=== PATIENT | male | born 1985 ===

== ENCOUNTER 2017-08-05 06:58 | Inpatient (IN) | payer OTHER ==
[~2017-08-05] VITALS: Ht 188 cm; Wt 102.1 kg
[2017-08-05] MEDS ORDERED: PRILOSEC OTC20 MG (07:47)
[2017-08-09] MEDS ORDERED: FLAGYL500MG PO (15:54)
[2017-08-09] MEDS ORDERED: CIPRO500 MG PO (15:54)
== END 2017-08-09 17:17 | disposition home or self-care (01) | DRG 392 ==
LOC: ER 06:58 → SEC-K 21:30 → MEDI 21:30 → MEDJ 08-07 14:30
PROC: BW21Y0Z Computerized Tomography (CT Scan) of Abdomen and Pelvis using Other Contrast, Unenhanced and Enhanced (ICD-10-PCS; principal; 2017-08-05)
PROC: 8E0ZXY6 Isolation (ICD-10-PCS; 2017-08-07)
DX: K57.32 Diverticulitis of large intestine without perforation or abscess without bleeding (principal); K52.89 Other specified noninfective gastroenteritis and colitis